=== PATIENT | male | born 1995 | race African-American/Black ===

== ENCOUNTER 2018-02-26 11:09 | Emergency (ER) | payer OTHER ==
[~2018-02-26] VITALS: Ht 185.4 cm; Wt 70.3 kg
[~2018-02-26 11:09] MED LIST: MEDROLDOSEPACK PO; NAPROSYN500 MG PO
[2018-02-26 11:16] VITALS: BP 108/46
[2018-02-26] MEDS ORDERED: ONE DAILY MULT1 EAC2 PO (11:17)
[2018-02-26] MEDS ORDERED: KEFLEX500 M1 PO (11:47)
[2018-02-26] MEDS ORDERED: ALBUTEROL2.5 MG/31 INH (11:47)
[2018-02-26] MEDS ORDERED: MEDROLDOSEPACK PO (11:47)
== END 2018-02-26 12:05 | disposition home or self-care (01) ==
LOC: M.ERS 11:09
DX: R21 Rash and other nonspecific skin eruption (principal)

== ENCOUNTER 2018-03-06 09:56 | Emergency (ER) | payer OTHER ==
[~2018-03-06] VITALS: Ht 185.4 cm; Wt 70.3 kg
[~2018-03-06 09:56] MED LIST changes: +ALBUTEROL2.5 MG/31 INH; +KEFLEX500 M1 PO; +ONE DAILY MULT1 EAC2 PO
[2018-03-06] MEDS ORDERED: TRIAMCINOLONE A80 G2 TOP (10:15)
[2018-03-06 10:28] VITALS: BP 110/62
== END 2018-03-06 10:42 | disposition home or self-care (01) ==
LOC: M.ERS 09:56
DX: L29.9 Pruritus, unspecified (principal)